=== PATIENT | male | born 1955 | race African-American/Black ===

== ENCOUNTER 2023-10-10 15:42 | Emergency (ER) | payer OTHER ==
[~2023-10-10] VITALS: Ht 185.4 cm; Wt 72.6 kg
[2023-10-10 16:14] VITALS: BP 169/100; PULSE 110; RESP 18; TEMP 97; O2SAT 98
[2023-10-10 17:10] LABS: BASOPHILS % (AUTO) 0.3 % (0.0-2.0); HEMATOCRIT 43.7 % (36-52); HEMOGLOBIN 15.3 g/dL (12.0-18.0); LYMPHOCYTES # (AUTO) 0.6 K/uL (2.0-11.5); LYMPHOCYTES % (AUTO) 6.7 % (20.5-51.1); MEAN CORPUSCULAR HEMOGLOBIN 33 pg (27-31); MEAN CORPUSCULAR HGB CONC 35 g/dL (33-37); MEAN CORPUSCULAR VOLUME 93.4 fL (80-94); MONOCYTES # (AUTO) 0.7 K/uL (0.8-1.0); MONOCYTES % (AUTO) 7.4 % (1.7-9.3); NEUTROPHILS # (AUTO) 7.9 K/uL (1.8-7.7); NEUTROPHILS % (AUTO) 85.6 % (42.2-75.2); PLATELET COUNT (AUTO) 263 K/uL (140-450); RED BLOOD CELL COUNT(AUTO) 4.68 MIL/uL (4.20-6.10); RED CELL DISTRIBUTION WIDTH 13.1 % (11.6-13.7); WHITE BLOOD COUNT (AUTO) 9.3 K/uL (4.8-10.8)
[2023-10-10 17:19] LABS: ANION GAP 17.8 (8-16); CALCIUM 9.7 mg/dL (8.5-10.1); CARBON DIOXIDE 26.3 mmol/L (21-32); CREATININE 1.1 mg/dL (0.6-1.3); POTASSIUM 4.1 mmol/L (3.5-5.1)
[2023-10-10 17:28] LABS: ALANINE AMINOTRANSFERASE 42 U/L (12-78); ALBUMIN 4.1 g/dL (3.4-5.0); ALKALINE PHOSPHATASE 109 U/L (50-136); ASPARTATE AMINOTRANSFERASE 23 U/L (15-37); BILIRUBIN,DIRECT 0.1 mg/dL (0.0-0.3); LIPASE 45 U/L (16-77); TOTAL BILIRUBIN 0.4 mg/dL (0.0-1.0); TOTAL PROTEIN, SERUM 10.6 g/dL (6.4-8.2)
[2023-10-10] MEDS ORDERED: METOCLOPRAMIDE 10 MG/2 ML INJ VIAL IVP ONE (18:55)
[2023-10-10] MEDS ORDERED: KETOROLAC 30 MG/ML VIAL IVP ONE (18:55)
[2023-10-10] MEDS ORDERED: NACL 0.9% 1,000 ML IV ONE (18:55)
[2023-10-10] MEDS ORDERED: ONDANSETRON 4 MG/2 ML VIAL IVP ONE (18:55)
[2023-10-10] MEDS ORDERED: amLODIPine 5 MG TAB PO ONE (18:55)
[2023-10-10] MEDS ORDERED: ONDA-188 SL (22:18)
[2023-10-10 22:25] VITALS: BP 151/85; PULSE 96; RESP 16; TEMP 97; O2SAT 95
[2023-10-10 23:48] LABS: FLU A ANTIGEN negative (NEGATIVE); FLU B ANTIGEN NEGATIVE (NEGATIVE)
== END 2023-10-10 22:25 | disposition home or self-care (01) ==
LOC: MED 15:42
DX: R11.2 Nausea with vomiting, unspecified (principal); Z20.822 Contact with and (suspected) exposure to COVID-19; R05.9 Cough, unspecified; I10 Essential (primary) hypertension; E78.00 Pure hypercholesterolemia, unspecified; Z79.899 Other long term (current) drug therapy
CPT/HCPCS: 36415; 70450; 71045; 80048; 80076; 83690; 83880; 84484; 85025; 87426; 87804; 93005; 96361; 96374; 99285; J1885; J2765; J7030